=== PATIENT | male | born 1950 | race Caucasian/White ===

== ENCOUNTER 2017-09-23 09:19 | Observation (INO) | payer MEDICARE, MEDICAID ==
[~2017-09-23] VITALS: Ht 175.3 cm; Wt 78.1 kg
[2017-09-23 09:49] VITALS: BP 146/95
[2017-09-23] MEDS ORDERED: ALBU8.5H8 INH (10:06)
[2017-09-23] MEDS ORDERED: OMEP-110 PO (10:06)
[2017-09-23] MEDS ORDERED: ATOR40TA PO (10:06)
[2017-09-23] MEDS ORDERED: ASPI-496 PO (10:07)
[2017-09-23] MEDS ORDERED: FENTANYL PF 100 MCG/2ML ONE ×2 (10:39→11:57)
[2017-09-23] MEDS ORDERED: LIDOCAINE/PF 1%, 30ML ONE (10:39)
[2017-09-23] MEDS ORDERED: MIDAZOLAM 1 MG/ML, 5ML ONE ×2 (10:39→11:57)
[2017-09-23] MEDS ORDERED: BIVALIRUDIN 250 MG ONE (11:36)
[2017-09-23] MEDS ORDERED: PRASUGREL 10 MG TABLET ONE (11:36)
[2017-09-23] MEDS ORDERED: NITROGLYCERIN 5 MG/ML, 10ML ONE (11:43)
[2017-09-23] MEDS ORDERED: BIVALIRUDIN 250 MG in DEXTROSE 5% 50 ML IV SCH (13:00)
[2017-09-23 16:02] VITALS: BP 130/89
[2017-09-23] MEDS ORDERED: ONDANSETRON ODT 4 MG PO PRN (17:00)
[2017-09-23] MEDS ORDERED: ZOLPIDEM 5MG TABLET PO PRN (21:00)
[2017-09-23] MEDS ORDERED: ATORVASTATIN 40 MG TABLET PO SCH ×2 (21:00)
[2017-09-23] MEDS ORDERED: ONDANSETRON 2MG/ML, 2ML IVPush PRN (21:00)
[2017-09-23] MEDS ORDERED: ALBUTEROL SULFATE 2.5 MG/3 ML NPPB PRN (21:00)
[2017-09-23] MEDS: SODIUM CHLORIDE 0.9% 1,000 ML IV SCH (21:00)
[2017-09-23] MEDS: ACETAMINOPHEN 325 MG TABLET PO PRN (23:15)
[2017-09-24 02:00] VITALS: BP 100/65
[2017-09-24] MEDS: SODIUM CHLORIDE 0.9% 1,000 ML IV SCH (04:10)
[2017-09-24] MEDS: ACETAMINOPHEN 325 MG TABLET PO PRN (05:48)
[2017-09-24] MEDS ORDERED: OMEPRAZOLE 20 MG CAPSULE.DR PO SCH (07:30)
[2017-09-24] MEDS ORDERED: ASPIRIN 81 MG TABLET EC PO SCH (09:00)
[2017-09-24] MEDS ORDERED: PRASUGREL 10 MG TABLET PO SCH ×2 (09:00)
[2017-09-24] MEDS ORDERED: ASPIRIN 81 MG TABLET CHEW PO SCH (09:00)
[2017-09-24 09:46] VITALS: BP 114/78
[2017-09-24] MEDS ORDERED: PRAS10TA4 PO (10:00)
[2017-09-24] MEDS ORDERED: METO25TA35 PO (10:00)
== END 2017-09-24 11:25 | disposition home or self-care (01) ==
LOC: CACL 09:19 → ORIP 14:52 → 5SO 15:43 → DCLOUNGE 09-24 11:07
PROVIDERS: ADMIT Internal Medicine Cardiovascular Disease; ATTEND Internal Medicine Cardiovascular Disease
DX: I25.110 Atherosclerotic heart disease of native coronary artery with unstable angina pectoris (principal); E78.5 Hyperlipidemia, unspecified; J44.9 Chronic obstructive pulmonary disease, unspecified; I86.8 Varicose veins of other specified sites; Z82.49 Family history of ischemic heart disease and other diseases of the circulatory system
CPT/HCPCS: 93005; 93458; 93571; 96374; 99156; 99157; C1725; C1760; C1769; C1874; C1887; C1894; C9600; G0378; J0583; J2250; J2405; J3010; J3490; Q9967

== ENCOUNTER → 2017-09-25 | Outpatient (CLI) | payer MEDICARE, MEDICAID ==
[~2017-09-25] MED LIST: ALBU8.5H8 INH; ASPI-496 PO; ATOR40TA PO; METO25TA35 PO; OMEP-110 PO; PRAS10TA4 PO
== END | disposition home or self-care (01) ==
LOC: CVU 11:53
PROVIDERS: ATTEND Internal Medicine Cardiovascular Disease
DX: I07.1 Rheumatic tricuspid insufficiency (principal); I86.8 Varicose veins of other specified sites; Z82.49 Family history of ischemic heart disease and other diseases of the circulatory system; Z87.891 Personal history of nicotine dependence
CPT/HCPCS: 0399T; 93306

== ENCOUNTER → 2017-10-07 | Outpatient (CLI) | payer MEDICARE, MEDICAID ==
[~2017-10-07] MED LIST changes: +ACETAMINOPHEN 325 MG TABLET PO PRN; +ASPIRIN 81 MG TABLET EC PO SCH; +ATORVASTATIN 40 MG TABLET PO SCH; +BIVALIRUDIN 250 MG in DEXTROSE 5% 50 ML IV SCH; +OMEPRAZOLE 20 MG CAPSULE.DR PO SCH; +ONDANSETRON 2MG/ML, 2ML IVPush PRN; +PLEASE ENTER HEIGHT AND WEIGHT MC SCH; +PRASUGREL 10 MG TABLET PO SCH; +SODIUM CHLORIDE 0.9% 1,000 ML IV SCH; +TEMPLATE NON-FORMULARY MED. (Albuterol Sulfate (Proair Hfa) 1 PUFF) INH PRN; +ZOLPIDEM 5MG TABLET PO PRN
== END | disposition home or self-care (01) ==
LOC: CVU 12:33
PROVIDERS: ATTEND Internal Medicine Cardiovascular Disease
DX: I83.91 Asymptomatic varicose veins of right lower extremity (principal); I70.202 Unspecified atherosclerosis of native arteries of extremities, left leg; E11.9 Type 2 diabetes mellitus without complications; Z87.891 Personal history of nicotine dependence; Z82.49 Family history of ischemic heart disease and other diseases of the circulatory system
CPT/HCPCS: 93005; 93922; 93926; 93970

== ENCOUNTER → 2018-03-29 | Outpatient (CLI) | payer MEDICARE, MEDICAID ==
[~2018-03-29] MED LIST changes: -ACETAMINOPHEN 325 MG TABLET PO PRN; -ASPIRIN 81 MG TABLET EC PO SCH; -ATORVASTATIN 40 MG TABLET PO SCH; -BIVALIRUDIN 250 MG in DEXTROSE 5% 50 ML IV SCH; -OMEPRAZOLE 20 MG CAPSULE.DR PO SCH; -ONDANSETRON 2MG/ML, 2ML IVPush PRN; -PLEASE ENTER HEIGHT AND WEIGHT MC SCH; -PRASUGREL 10 MG TABLET PO SCH; -SODIUM CHLORIDE 0.9% 1,000 ML IV SCH; -TEMPLATE NON-FORMULARY MED. (Albuterol Sulfate (Proair Hfa) 1 PUFF) INH PRN; -ZOLPIDEM 5MG TABLET PO PRN
== END | disposition home or self-care (01) ==
LOC: SUSANVILLE 08:00
PROVIDERS: ATTEND Internal Medicine Cardiovascular Disease
DX: I25.10 Atherosclerotic heart disease of native coronary artery without angina pectoris (principal); J44.9 Chronic obstructive pulmonary disease, unspecified; I95.9 Hypotension, unspecified; R06.02 Shortness of breath; E78.5 Hyperlipidemia, unspecified
CPT/HCPCS: 93306